=== PATIENT | female | born 1955 | race Caucasian/White ===

== ENCOUNTER → 2021-03-10 | Outpatient (CLI) | payer MEDICARE, OTHER ==
--- NOTE | 2021-03-10 16:48 | RAD ---
DXA BONE DENSITY AXIAL History: Reason: / Spl. Instructions: / History: Postmenopausal Comparison: None. TECHNIQUE: Dual energy x-ray absorptiometry of the lumbar spine and right hip was performed. T-score of average bone mineral density based was calculated based on standard deviations above or below the expected young adult normal value. Diagnostic definitions were established by the [employer]. FINDINGS: The average bone mineral density associated with L1-L4 is 1.095 g/cm^2, corresponding with a T-score of -0.7. The average total bone mineral density associated with right hip is 0.894 g/cm^2, corresponding with a T-score of -0.5. Isolated right femoral neck T score -1.0. Refer to the worksheets for full detail. IMPRESSION: 1. Osteopenia according to isolated right femoral neck T score. Average bone mineral density yields a T-score between -1.0 and -2.5. Fracture risk is increased. Electronically signed by: Robson Hawk DO (03/10/2021 4:46 PM) [id number]
--- NOTE | 2021-03-15 18:07 | RAD ---
DATE: 03/10/2021 EXAM: MAMMO [facility] SCREENING BILATERAL HISTORY: Screening COMPARISON: Prior exams dating back to 11/22/2013 This study was interpreted with the benefit of Computerized Aided Detection (CAD). Breast Density: SCATTERED The breast parenchyma shows scattered fibroglandular densities. Breast parenchyma level B. FINDINGS: Multiple focal asymmetries in the retroareolar and upper outer anterior right breast are unchanged from 2013. A group of benign-appearing calcifications in the lower inner left breast are unchanged from 2017. No suspicious mass, suspicious calcifications, or architectural distortion. IMPRESSION: No evidence of malignancy. BI-RADS CATEGORY: 2 BENIGN FINDING(S) RECOMMENDED FOLLOW-UP: 12M 12 MONTH FOLLOW-UP PQRS compliance statement: Patient information was entered into a reminder system with a target due date for the next mammogram. Mammography is a sensitive method for finding small breast cancers, but it does not detect them all and is not a substitute for careful clinical examination. A negative mammogram does not negate a clinically suspicious finding and should not result in delay in biopsying a clinically suspicious abnormality. "Our facility is accredited by the [employer] Mammography Program."
== END ==
LOC: MAMMO 10:30
PROVIDERS: ATTEND Family Medicine
DX: Z12.31 Encounter for screening mammogram for malignant neoplasm of breast (principal); M85.88 Other specified disorders of bone density and structure, other site; Z78.0 Asymptomatic menopausal state
CPT/HCPCS: 77063; 77067; 77080